=== PATIENT | female | born 2000 | race Caucasian/White ===

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

== ENCOUNTER 2021-07-25 13:14 | Emergency (ER) | payer MEDICAID, OTHER ==
[2021-07-25] MEDS ORDERED: Sodium Chloride 0.9% 1,000 ML IV ONE (13:32)
[2021-07-25] MEDS ORDERED: Sodium Chloride 0.9% 10 ML Syringe FLUSH PRN (13:32)
[2021-07-25] MEDS ORDERED: Sodium Chloride 0.9% 2.5 ML Syringe FLUSH PRN (13:32)
--- NOTE | 2021-07-25 13:36 | EDM.PDOC ---
ED HPI GENERAL MEDICAL PROBLEM - General Chief Complaint: General Stated Complaint: HAS PASSED OUT A FEW TIMES IN THE LAST WK Time Seen by Provider: 07/25/21 13:16 - History of Present Illness INITIAL COMMENTS - FREE TEXT/NARRATIVE: 21-year-old female presents to the emergency department for near syncope. Patient had an episode about 5 days ago and again today. Today she stood up felt lightheaded and then passed out. Lasted a couple seconds and was better. No chest pain or shortness of breath. Patient does have a history of anxiety. Patient last had her period in March and does not know if she is . No history of blood clots. No leg swelling. No recent travel or injury or cancer surgery. Patient has any cough or productive sputum or shortness of breath. She is not vaccinated against Covid. Patient denies any recent vomiting or diarrhea or red or black stools or excessive vaginal bleeding - Related Data Allergies Allergy/AdvReac Type Severity Reaction Status Date / Time blue dye Allergy Hives Verified 07/25/21 13:21 Home Meds: Home Meds . [No Known Home Meds] 07/25/21 [History] Past Medical History HEENT History: Reports: None Cardiovascular History: Reports: None Respiratory History: Reports: Asthma Gastrointestinal History: Reports: None Genitourinary History: Reports: None [employer]ER History: Reports: None Musculoskeletal History: Reports: None Neurological History: Reports: None Psychiatric History: Reports: None Endocrine/Metabolic History: Reports: None Hematologic History: Reports: None Immunologic History: Reports: None Oncologic (Cancer) History: Reports: None Dermatologic History: Reports: None - Infectious Disease History Infectious Disease History: Reports: Chicken Pox - Past Surgical History Head Surgeries/Procedures: Reports: None HEENT Surgical History: Reports: Myringotomy w Tube(s), Tonsillectomy Cardiovascular Surgical History: Reports: None Respiratory Surgical History: Reports: None Social & Family History - Family History Family Medical History: No Pertinent Family History - Tobacco Use Tobacco Use Status *Q: Current Every Day Tobacco User Years of Tobacco use: 2 Packs/Tins Daily: 1 - Caffeine Use Caffeine Use: Reports: Soda - Recreational Drug Use Recreational Drug Use: No ED ROS GENERAL - Review of Systems Review Of Systems: Comprehensive ROS is negative, except as noted in HPI. ED EXAM, GENERAL - Physical Exam Exam: See Below Free Text/Narrative:: CONSTITUTIONAL: well appearing in no acute distress SKIN: Warm, dry, and intact without rash HENT: Normocephalic, atraumatic, PULMONARY: clear to ausculation bilaterally. No rales, rhonchi, wheezing CARDIOVASCULAR: regular rate, No murmur, rubs, or gallops GASTROINTESTINAL: soft, nondistended, nontender NEUROLOGIC: normal speech, sensorimotor function grossly intact MUSCULOSKELETAL: no gross deformities, atraumatic PSYCHIATRIC: normal mood and affect #1 Interpretation Time: 13:35 EKG Interpretation Comments: EKG: NSR, nonspecific ST/T changes, no QT prolongation, HCOM, no delta wave, no definitive Brugada's, no epsilon wave . rate-94 Course - Vital Signs Last Recorded V/S: Last Vital Signs Temp 35.9 C L 07/25/21 13:21 Pulse 89 07/25/21 15:38 Resp 18 07/25/21 15:38 BP 117/69 07/25/21 15:38 Pulse Ox 99 07/25/21 15:38 - Orders/Labs/Meds Orders: Active Orders 24 hr Category Date Time Status Pulse Oximetry [RC] ASDIRECTED Care 07/25/21 13:33 Active Sodium Chloride 0.9% [Saline Flush] Med 07/25/21 13:32 Active 10 ml FLUSH ASDIRECTED PRN Sodium Chloride 0.9% [Saline Flush] Med 07/25/21 13:32 Active 2.5 ml FLUSH ASDIRECTED PRN Saline Lock Insert [OM.PC] Stat Oth 07/25/21 13:33 Ordered Medication Orders Sodium Chloride (Sodium Chloride 0.9% 10 Ml Syringe) 10 ml FLUSH ASDIRECTED PRN PRN Reason: Keep Vein Open Last Admin: 07/25/21 13:58 Dose: 10 ml Documented by: CARLOS ENRIQUE Sodium Chloride (Sodium Chloride 0.9% 2.5 Ml Syringe) 2.5 ml FLUSH ASDIRECTED PRN PRN Reason: Keep Vein Open Last Admin: 07/25/21 13:59 Dose: 2.5 ml Documented by: CARLOS ENRIQUE Labs: Laboratory Tests 07/25/21 07/25/21 07/25/21 Range/Units 13:50 13:50 13:50 WBC 4.47 (4.0-11.0) K/uL RBC 4.83 (4.30-5.90) M/uL Hgb 14.6 (12.0-16.0) g/dL Hct 41.8 (36.0-46.0) % MCV 86.5 (80.0-98.0) fL MCH 30.2 (27.0-32.0) pg MCHC 34.9 (31.0-37.0) g/dL RDW Std Deviation 40.0 (28.0-62.0) fl RDW Coeff of Kim 13 (11.0-15.0) % Plt Count 187 (150-400) K/uL MPV 10.00 (7.40-12.00) fL Neut % (Auto) 65.7 (48.0-80.0) % Lymph % (Auto) 20.4 (16.0-40.0) % [place] % (Auto) 13.0 (0.0-15.0) % Eos % (Auto) 0.9 (0.0-7.0) % Baso % (Auto) 0.0 (0.0-1.5) % Neut # (Auto) 2.9 (1.4-5.7) K/uL Lymph # (Auto) 0.9 (0.6-2.4) K/uL [place] # (Auto) 0.6 (0.0-0.8) K/uL Eos # (Auto) 0.0 (0.0-0.7) K/uL Baso # (Auto) 0.0 (0.0-0.1) K/uL Nucleated RBC % 0.0 /100WBC Nucleated RBCs # 0 K/uL D-Dimer, Quantitative 0.66 H (0.0-0.50) mg/L FEU Sodium 136 (136-145) mmol/L Potassium 3.6 (3.5-5.1) mmol/L Chloride 103 (98-107) mmol/L Carbon Dioxide 23.9 (21.0-32.0) mmol/L BUN 7 (7.0-18.0) mg/dL Creatinine 0.6 (0.6-1.0) mg/dL Est Cr Clr Drug Dosing 133.46 mL/min Estimated GFR (MDRD) > 60.0 ml/min Glucose 75 (74-106) mg/dL Calcium 9.3 (8.5-10.1) mg/dL Total Bilirubin 0.2 (0.2-1.0) mg/dL AST 28 (15-37) IU/L ALT 37 (14-63) IU/L Alkaline Phosphatase 78 (46-116) U/L Troponin I < 0.050 (0.000-0.056) ng/mL Total Protein 7.8 (6.4-8.2) g/dL Albumin 3.8 (3.4-5.0) g/dL Globulin 4.0 (2.6-4.0) g/dL Albumin/Globulin Ratio 0.9 (0.9-1.6) HCG, Quant mIU/mL Urine HCG, Qual (NEGATIVE) SARS-CoV-2 RNA (JOSÉ) (NEGATIVE) 07/25/21 07/25/21 07/25/21 Range/Units 13:50 13:52 14:15 WBC (4.0-11.0) K/uL RBC (4.30-5.90) M/uL Hgb (12.0-16.0) g/dL Hct (36.0-46.0) % MCV (80.0-98.0) fL MCH (27.0-32.0) pg MCHC (31.0-37.0) g/dL RDW Std Deviation (28.0-62.0) fl RDW Coeff of Kim (11.0-15.0) % Plt Count (150-400) K/uL MPV (7.40-12.00) fL Neut % (Auto) (48.0-80.0) % Lymph % (Auto) (16.0-40.0) % [place] % (Auto) (0.0-15.0) % Eos % (Auto) (0.0-7.0) % Baso % (Auto) (0.0-1.5) % Neut # (Auto) (1.4-5.7) K/uL Lymph # (Auto) (0.6-2.4) K/uL [place] # (Auto) (0.0-0.8) K/uL Eos # (Auto) (0.0-0.7) K/uL Baso # (Auto) (0.0-0.1) K/uL Nucleated RBC % /100WBC Nucleated RBCs # K/uL D-Dimer, Quantitative (0.0-0.50) mg/L FEU Sodium (136-145) mmol/L Potassium (3.5-5.1) mmol/L Chloride (98-107) mmol/L Carbon Dioxide (21.0-32.0) mmol/L BUN (7.0-18.0) mg/dL Creatinine (0.6-1.0) mg/dL Est Cr Clr Drug Dosing mL/min Estimated GFR (MDRD) ml/min Glucose (74-106) mg/dL Calcium (8.5-10.1) mg/dL Total Bilirubin (0.2-1.0) mg/dL AST (15-37) IU/L ALT (14-63) IU/L Alkaline Phosphatase (46-116) U/L Troponin I (0.000-0.056) ng/mL Total Protein (6.4-8.2) g/dL Albumin (3.4-5.0) g/dL Globulin (2.6-4.0) g/dL Albumin/Globulin Ratio (0.9-1.6) HCG, Quant 99413.0 mIU/mL Urine HCG, Qual POSITIVE (NEGATIVE) SARS-CoV-2 RNA (JOSÉ) POSITIVE H (NEGATIVE) Meds: Medications Generic Name Dose Route Start Last Admin Trade Name Freq PRN Reason Stop Dose Admin Sodium Chloride 10 ml 07/25/21 13:32 07/25/21 13:58 Sodium Chloride 0.9% 10 Ml Syringe FLUSH 10 ml ASDIRECTED PRN Administration Keep Vein Open Sodium Chloride 2.5 ml 07/25/21 13:32 07/25/21 13:59 Sodium Chloride 0.9% 2.5 Ml Syringe FLUSH 2.5 ml ASDIRECTED PRN Administration Keep Vein Open Discontinued Medications Generic Name Dose Route Start Last Admin Trade Name Freq PRN Reason Stop Dose Admin Sodium Chloride 1,000 mls @ 999 mls/hr 07/25/21 13:32 07/25/21 13:58 Normal Saline IV 07/25/21 14:32 999 mls/hr .BOLUS ONE Administration Departure - Departure Time of Disposition: 16:32 Disposition: Home, Self-Care 01 Condition: Good Clinical Impression: , COVID-19, Syncope - Discharge Information Instructions: and COVID-19, COVID-19: What to Do If You Are Sick- [facility] (10/26/2020), Syncope, [id number], Care Referrals: PCP,None [Primary Care Provider] - Forms: ED Department Discharge Additional Instructions: Return for any significant shortness of breath or if you change your mind and would like CAT scan to rule out blood clot in the lung as discussed. Return for any vaginal bleeding. Return for any chest pain or recurrence of passing out. Drink plenty of fluid. Please follow-up with primary care doctor and [employer]ER for continued treatment and evaluation -- -------- The following information is given to patients seen in the emergency department who are being discharged to home. This information is to outline your options for follow-up care. We provide all patients seen in our emergency department with a follow-up referral. The need for follow-up, as well as the timing and circumstances, are variable depending upon the specifics of your emergency department visit. If you don't have a primary care physician on staff, we will provide you with a referral. We always advise you to contact your personal physician following an emergency department visit to inform them of the circumstance of the visit and for follow-up with them and/or the need for any referrals to a consulting specialist. The emergency department will also refer you to a specialist when appropriate. This referral assures that you have the opportunity for follow-up care with a specialist. All of these measure are taken in an effort to provide you with optimal care, which includes your follow-up. Primary care clinics in the area: [facility] - Primary Care [address] [place] [address] [address] [facility] [address] [place] [id number] Under all circumstances we always encourage you to contact your private physician who remains a resource for coordinating your care. When calling for follow-up care, please make the office aware that this follow-up is from your recent emergency room visit. If for any reason you are refused follow-up, please contact the [facility] Emergency Department at and asked to speak to the emergency department charge nurse. Sepsis Event Note (ED) - Evaluation Sepsis Screening Result: No Definite Risk - Focused Exam Vital Signs: Vital Signs Temp Pulse Resp BP Pulse Ox 07/25/21 15:38 89 18 117/69 99 07/25/21 14:30 93 18 122/67 100 07/25/21 13:21 35.9 C L 105 H 15 132/80 98 - My Orders Last 24 Hours: My Active Orders 07/25/21 13:32 Sodium Chloride 0.9% [Saline Flush] 10 ml FLUSH ASDIRECTED PRN Sodium Chloride 0.9% [Saline Flush] 2.5 ml FLUSH ASDIRECTED PRN 07/25/21 13:33 Pulse Oximetry [RC] ASDIRECTED Saline Lock Insert [OM.PC] Stat - Assessment/Plan Last 24 Hours: My Active Orders 07/25/21 13:32 Sodium Chloride 0.9% [Saline Flush] 10 ml FLUSH ASDIRECTED PRN Sodium Chloride 0.9% [Saline Flush] 2.5 ml FLUSH ASDIRECTED PRN 07/25/21 13:33 Pulse Oximetry [RC] ASDIRECTED Saline Lock Insert [OM.PC] Stat
[2021-07-25 15:02] LABS: BLOOD UREA NITROGEN,BUN 7 mg/dL (7.0-18.0); CARBON DIOXIDE,CO2 23.9 mmol/L (21.0-32.0); CHLORIDE,CL 103 mmol/L (98-107); GLUCOSE RANDOM 75 mg/dL (74-106); POTASSIUM,K 3.6 mmol/L (3.5-5.1); SODIUM,NA 136 mmol/L (136-145)
--- NOTE | 2021-07-25 15:40 | US ---
INDICATION: HX , SYNCOPE, ELEVATED D DIMER TECHNIQUE: Ultrasound venous duplex lower extremity bilateral. Compression venous exam was performed using alamo scale, color Doppler, and spectral Doppler imaging. COMPARISON: None. FINDINGS: Sonographic imaging demonstrates the common femoral, deep femoral, superficial femoral, popliteal, posterior tibial and greater saphenous veins to be fully compressible with normal color Doppler blood flow in both lower extremities. IMPRESSION: Normal bilateral lower extremity venous ultrasound, no sign of deep venous thrombosis. Dictated by: Elvis Murillo MD @ 07/25/2021 15:40:16 (Electronically Signed)
--- NOTE | 2021-07-25 16:24 | US ---
INDICATION: Evaluate dates. TECHNIQUE: 2D alamo scale imaging of the fetus was performed. FINDINGS: Sonographic imaging demonstrates a single living intrauterine gestation. Fetus demonstrates a regular cardiac rate of 145 beats per minute. Fetus has a variable presentation. The placenta lies in a posterior fundal location without evidence of placenta previa. Amniotic fluid volume appears normal. The composite ultrasound gestational age is calculated at 14 weeks 3 days with an estimated sonographic due date of 01/20/2022. The following biometric measurements were obtained: Biparietal diameter: 2.7 cm/14 weeks 5 days Head circumference: 9.5 cm/14 weeks 2 days Abdominal circumference: 8.4 cm/14 weeks 5 days Femur length: 1.4 cm/14 weeks The HC/AC ratio measures: 1.13 No abnormalities were noted within the fetus at this early stage of development. IMPRESSION: Gestational age calculated at 14 weeks 3 days with estimated due date of 01/20/2022. Dictated by Polo Steen MD @ 07/25/2021 4:24:06 PM (Electronically Signed)
== END 2021-07-25 17:00 | disposition home or self-care (01) ==
LOC: MW.ED 13:14
DX: O98.519 Other viral diseases complicating pregnancy, unspecified trimester (principal); U07.1 COVID-19; O99.891 Other specified diseases and conditions complicating pregnancy; R55 Syncope and collapse; O99.519 Diseases of the respiratory system complicating pregnancy, unspecified trimester; J45.909 Unspecified asthma, uncomplicated; Z91.048 Other nonmedicinal substance allergy status; Z72.0 Tobacco use
CPT/HCPCS: 36415; 76801; 80053; 81025; 84484; 84702; 85025; 85379; 87635; 93005; 93970; 99284; J7030; U0002

== ENCOUNTER 2022-01-02 14:48 | Inpatient (IN) | payer MEDICAID ==
[2022-01-02] MEDS ORDERED: Sodium Chloride 0.9% 20 ML SDV IV PRN (15:16)
[2022-01-02] MEDS ORDERED: Lidocaine 1% 50 ML MDV INJECT PRN (15:16)
[2022-01-02] MEDS ORDERED: Tranexamic Acid 1,000 MG in Sodium Chloride 0.9% 100 ML IV PRN (15:16)
[2022-01-02] MEDS ORDERED: Misoprostol 200 MCG Tab PO PRN (15:16)
[2022-01-02] MEDS ORDERED: Sodium Chloride 0.9% 10 ML Syringe FLUSH PRN (15:16)
[2022-01-02] MEDS ORDERED: Terbutaline 1 MG/ML SDV SUBCUT PRN (15:16)
[2022-01-02] MEDS ORDERED: Ondansetron 4 MG/2 ML SDV IVPUSH PRN (15:16)
[2022-01-02] MEDS ORDERED: Sodium Chloride 0.9% 2.5 ML Syringe FLUSH PRN (15:16)
[2022-01-02] MEDS ORDERED: Water For Irrigation,Sterile 1,000 ML Container IRR PRN (15:16)
[2022-01-02] MEDS ORDERED: Carboprost Tromethamine 250 MCG/1 ML Amp IM PRN (15:16)
[2022-01-02] MEDS ORDERED: Methylergonovine 0.2 MG/1 ML Amp IM PRN (15:16)
[2022-01-02] MEDS ORDERED: Oxytocin/0.9 % Sodium Chloride 30 UNIT/500 ML BAG IV SCH ×2 (15:30)
[2022-01-02] MEDS ORDERED: Misoprostol 25 MCG (1/4 of 100 MCG) Tab VAG PRN (16:00)
[2022-01-02] MEDS: Lactated Ringers 1,000 ML IV SCH (16:35)
[2022-01-02 17:24] LABS: BLOOD UREA NITROGEN,BUN 5 mg/dL (7.0-18.0); CARBON DIOXIDE,CO2 18.7 mmol/L (21.0-32.0); CHLORIDE,CL 106 mmol/L (98-107); GLUCOSE RANDOM 66 mg/dL (74-106); POTASSIUM,K 3.5 mmol/L (3.5-5.1); SODIUM,NA 138 mmol/L (136-145)
[2022-01-02] MEDS ORDERED: Labetalol 100 MG/20 ML MDV IVPUSH PRN (19:04)
[2022-01-02] MEDS: Misoprostol 25 MCG (1/4 of 100 MCG) Tab VAG PRN (20:50)
[2022-01-03] MEDS: Misoprostol 25 MCG (1/4 of 100 MCG) Tab VAG PRN ×2 (00:58→04:54)
[2022-01-03] MEDS: Butorphanol 1 MG/ML SDV IVPUSH PRN ×2 (12:43→15:36)
[2022-01-03] MEDS: Lactated Ringers 1,000 ML IV SCH ×3 (12:56→19:52)
[2022-01-03] MEDS ORDERED: Ropivacaine in NACL,ISO-OSM/PF 400 ML ONE (16:34)
[2022-01-03] MEDS ORDERED: ePHEDrine 50 MG/ML SDV IVPUSH PRN (16:51)
[2022-01-03] MEDS ORDERED: Ropivacaine in NACL,ISO-OSM/PF 800 MG in Premix Bag 1 BAG EPIDUR SCH ×2 (17:00)
[2022-01-03] MEDS ORDERED: Ondansetron 4 MG/2 ML SDV IVPUSH PRN (19:01)
[2022-01-04] MEDS ORDERED: Acetaminophen 500 MG Tab PO PRN ×2 (02:58)
[2022-01-04] MEDS ORDERED: Ibuprofen 800 MG Tab PO PRN (02:58)
[2022-01-04] MEDS ORDERED: Benzocaine/Menthol 20%-0.5% Spray 78 GM Cannister TOP PRN (02:58)
[2022-01-04] MEDS ORDERED: Bisacodyl 10 MG Supp RECTAL PRN (02:58)
[2022-01-04] MEDS ORDERED: Ibuprofen 400 MG Tab PO PRN (02:58)
[2022-01-04] MEDS ORDERED: Lanolin 100% Cream 7 GM Tube TOP PRN (02:58)
[2022-01-04] MEDS ORDERED: Witch Hazel Medicated Pads 40/Jar TOP PRN (02:58)
[2022-01-04] MEDS ORDERED: oxyCODONE 5 MG Tab PO PRN (02:58)
[2022-01-04 07:45] LABS: BLOOD UREA NITROGEN,BUN 8 mg/dL (7.0-18.0); CHLORIDE,CL 107 mmol/L (98-107); GLUCOSE RANDOM 90 mg/dL (74-106); POTASSIUM,K 3.5 mmol/L (3.5-5.1); SODIUM,NA 138 mmol/L (136-145)
[2022-01-04] MEDS: Docusate Sodium 100 MG Cap PO PRN (14:15)
[2022-01-05] MEDS: Docusate Sodium 100 MG Cap PO PRN (20:03)
== END 2022-01-05 22:02 | disposition home or self-care (01) | DRG 807 ==
LOC: MW.OBCHECK 14:48 → MW.OB 14:48 → MW.OBCHECK 15:16 → MW.OB 15:17 → OBSVTOIN 01-04 02:21 → MW.OB 01-04 10:40
PROVIDERS: ADMIT Obstetrics & Gynecology; ATTEND Obstetrics & Gynecology
PROC: 10E0XZZ Delivery of Products of Conception, External Approach (ICD-10-PCS; principal; 2022-01-04)
PROC: 10907ZC Drainage of Amniotic Fluid, Therapeutic from Products of Conception, Via Natural or Artificial Opening (ICD-10-PCS; 2022-01-04)
PROC: 0HQ9XZZ Repair Perineum Skin, External Approach (ICD-10-PCS; 2022-01-04)
PROC: 3E033VJ Introduction of Other Hormone into Peripheral Vein, Percutaneous Approach (ICD-10-PCS; 2022-01-04)
PROC: 3E0P7VZ Introduction of Hormone into Female Reproductive, Via Natural or Artificial Opening (ICD-10-PCS; 2022-01-04)
DX: O13.4 Gestational [pregnancy-induced] hypertension without significant proteinuria, complicating childbirth (principal); Z37.0 Single live birth; O99.334 Smoking (tobacco) complicating childbirth; F17.290 Nicotine dependence, other tobacco product, uncomplicated; O99.52 Diseases of the respiratory system complicating childbirth; J45.909 Unspecified asthma, uncomplicated; O70.0 First degree perineal laceration during delivery; Z20.822 Contact with and (suspected) exposure to COVID-19; Z3A.37 37 weeks gestation of pregnancy; Z86.16 Personal history of COVID-19
CPT/HCPCS: 01967; 36415; 51702; 59025; 59409; 80053; 82570; 82803; 84156; 84550; 85025; 85027; 86592; 86850; 86900; 86901; A9270-GY; J0595; J2405; J2590; J2795; J7120; U0002